=== PATIENT | female | born 1985 ===

== ENCOUNTER 2019-11-08 17:17 | Inpatient (IN) | payer OTHER ==
[2019-11-08] MEDS ORDERED: LIDOCAINE (2%) 20 MG/1 ML VIAL 20 ML MDV INFILTRATI ONE (19:54)
[2019-11-08] MEDS ORDERED: BUTORPHANOL 2 MG/1 ML INJ IV PRN ×2 (19:54)
[2019-11-08] MEDS ORDERED: TERBUTALINE 1 MG/1 ML INJ IVP PRN (19:54)
[2019-11-08] MEDS ORDERED: TERBUTALINE 1 MG/1 ML INJ SUB-Q PRN (19:54)
[2019-11-08] MEDS ORDERED: ePHEDrine SULFATE 50 MG/1 ML INJ IV PRN ×2 (19:54→21:10)
[2019-11-08] MEDS ORDERED: MINERAL OIL 30 ML ORAL LIQD PO PRN (19:54)
[2019-11-08] MEDS ORDERED: fentaNYL 100 MCG/2 ML INJ IV PRN (19:54)
[2019-11-08] MEDS ORDERED: OXYTOCIN DRIP 30 UNITS/500 ML BAG IV SCH ×2 (20:00)
--- NOTE | 2019-11-08 20:14 | History and Physical Report ---
History of Present Illness Date of examination: 11/08/19 Date of admission: 11/08/19 19:40 Chief complaint: Pt presented to ob triage with c/o back pain with bloody show. She denies rupture of BOW. History of present illness: 34 y/o female presented to OB triage with c/o low back pain and bloody show. Pt denied rupture of BOW. Pt initiated her pnc at [facility] at 11 6/7 wks. Pt had an uneventful preg. She has a hx of anemia, vit D def, GDM 11 yrs ago but normal testing this preg. Hx of macrosomic babies with delivery of a 10 lb 3oz in 2017. Quad screen revealed an increased risk for DSR; Panorama 05/01: low risk male. Neg med/surg/social hx. Family hx of HTN. Pt was admitted and taken to the labor unit. Past History Past Surgical History: no surgical history Family/Genetic History: hypertension Social history: no significant social history - Obstetrical History Expected Date of Delivery: 11/10/19 Actual Gestation: 39 Week(s) 5 Day(s) : 7 Para: 6 Hx # Term Pregnancies: 6 Number of Pregnancies: 0 Spontaneous Abortions: 0 Induced : 0 Number of Living Children: 6 Medications and Allergies Allergies Allergy/AdvReac Type Severity Reaction Status Date / Time No Known Allergies Allergy Verified 06/01/15 13:55 Home Medications Medication Instructions Recorded Confirmed Last Taken Type HYDROcodone/APAP 5-325 [[place] 2 each PO Q4HR PRN #20 tablet 06/03/15 Unknown Rx 5/325] Promethazine [Phenergan TAB] 25 mg PO Q6HR PRN #20 tab 06/03/15 Unknown Rx Review of Systems All systems: negative Eyes: deferred Ears, nose, mouth and throat: deferred Breasts: normal Genitourinary: normal appearance Rectal Exam: deferred - Vital Signs Vital signs: Vital Signs Pulse Pulse Ox 76 97 11/08/19 19:48 11/08/19 19:48 Temp Pulse Resp BP Pulse Ox 90 120/67 98 11/08/19 19:58 11/08/19 19:49 11/08/19 19:58 - Physical Exam Breasts: Positive: normal Abdomen: Positive: normal appearance, soft, normal bowel sounds, other (gravid) Genitourinary (Female): Positive: normal external genitalia, normal perenium Vulva: both: normal Vagina: Positive: normal moisture Uterus: Positive: enlarged, other (gravid) Adnexa: both: normal Anus/Rectum: Positive: normal perianal skin Extremities: Positive: normal - Obstetrical FHR: category 1 Uterine Contraction Monitor Mode: External Cervical Dilatation: 4 (per nurse) Cervical Effacement Percentage: 50 (per nurse) station: -2 Uterine Contraction Pattern: Irregular Uterine Tone Measurement Phase: Resting Uterine Contraction Intensity: Mild Results All other labs normal. Assessment and Plan A: IUP @ 39.6 wks GBS neg Anemia CAT I FHT P: Admit to L&D Monitor Pain med prn Start Pitocin per hosp protocal Anticipate
[2019-11-08] MEDS: LACTATED RINGERS 1,000 ML IV SCH ×2 (20:25→21:45)
[2019-11-08 20:48] LABS: Hematocrit 36.8 % (30.3-42.9); Hemoglobin 12.8 gm/dl (10.1-14.3); Mean Corpuscular HGB Conc 35 % (30-34); Mean Corpuscular Volume 95 fl (79-97); Platelet Count 261 K/mm3 (140-440); Red Blood Count 3.89 M/mm3 (3.65-5.03); Red Cell Distribution Width 14.7 % (13.2-15.2)
[2019-11-08] MEDS ORDERED: NALOXONE 2 MG/2 ML INJ IV PRN (21:10)
--- NOTE | 2019-11-08 21:14 | Anesthesia Consultation ---
Anesthesia Consult and Med Hx Date of service: 11/08/19 - Airway Anesthetic Teeth Evaluation: Chipped, Caps ROM Head & Neck: Adequate Mental/Hyoid Distance: Adequate Mallampati Class: Class III Intubation Access Assessment: Probably Good - Pulmonary Exam CTA: Yes - Cardiac Exam Cardiac Exam: RRR - Pre-Operative Health Status ASA Pre-Surgery Classification: ASA2 Proposed Anesthetic Plan: Epidural - Pulmonary Hx Smoking: No Hx Asthma: No Hx Respiratory Symptoms: No SOB: No COPD: No Home Oxygen Therapy: No Hx Pneumonia: No Hx Sleep Apnea: No - Cardiovascular System Hx Hypertension: No Hx Coronary Artery Disease: No Hx Heart Attack/AMI: No Hx Angina: No Hx Percutaneous Transluminal Coronary Angioplasty (PTCA): No Hx Cardia Arrhythmia: No Hx Pacemaker: No Hx Internal Defibrillator: No Hx Valvular Heart Disease: No Hx Heart Murmur: No Hx Peripheral Vascular Disease: No - Central Nervous System Hx Neuromuscular Disorder: No Hx Seizures: No CVA: No Hx Back Pain: No Hx Psychiatric Problems: No - Gastrointestinal Hx Ulcer: No Hx Gastroesophageal Reflux Disease: No - Endocrine Hx Renal Disease: No Hx End Stage Renal Disease: No Hx Cirrhosis: No Hx Liver Disease: No Hx Insulin Dependent Diabetes: No Hx Non-Insulin Dependent Diabetes: No Hx Thyroid Disease: No Hx Hypothyroidism: No Hx Hyperthyroidism: No - Hematic Hx Anemia: No Hx Sickle Cell Disease: No - Other Systems Hx Alcohol Use: No Hx Substance Use: No Hx Cancer: No Hx Obesity: Yes
[2019-11-08] MEDS ORDERED: DEXMEDETOMIDINE 200 MCG/2 ML VIAL IV ONE (21:24)
--- NOTE | 2019-11-08 22:39 | Progress Note ---
Labor Epidural - Labor Epidural Start Time: 22:14 Stop Time: 22:25 Performed by:: RODRIGUEZ ALAS Procedure: Patient is requesting combined spinal epidural for labor and pain. H&P, labs were reviewed. All questions and concerns were answered. Informed consent was obtained. Timeout performed. Patient in sitting position on side of bed. Sterile prep and drape was performed. [4] mL 1% lidocaine skin wheal at L [3]-L [4]. 18-gauge Touhy epidural needle advanced to [id number] using air technique, [5cm] negative CSF/Heme. 27-gauge spinal needle advanced [clear positive free-flowing] CSF, no paraesthesia. spinal dose of [Precedex 10 mcg]. Epidural catheter advanced to [10] cm. [Negative] Aspiration, [negative] test dose. Sterile dressing applied. Patient tolerated procedure well
[2019-11-08] MEDS: fentaNYL-BUPIV 2 MCG/ML-0.125% 200 MCG/100 ML BAG EPIDURAL SCH (22:46)
--- NOTE | 2019-11-09 03:00 | Progress Note ---
Assessment and Plan A: CAT I FHT p: Continue monitoring AROM cl fluid anticipate Subjective - Subjective Date of service: 11/09/19 Interval history: 34 y/o female presented to OB triage with c/o low back pain and bloody show. Pt denied rupture of BOW. Pt initiated her pnc at [facility] at 11 6/7 wks. Pt had an uneventful preg. She has a hx of anemia, vit D def, GDM 11 yrs ago but normal testing this preg. Hx of macrosomic babies with delivery of a 10 lb 3oz in 2017. Quad screen revealed an increased risk for DSR; Panorama 05/01: low risk male. Neg med/surg/social hx. Family hx of HTN. Pt was admitted and taken to the labor unit. Patient reports: movement normal Objective - Vital Signs Vital Signs: Vital Signs - 12hr 11/08/19 11/08/19 11/08/19 19:48 19:49 19:53 Temperature Pulse Rate 76 69 79 Respiratory Rate Blood Pressure 120/67 Blood Pressure [Right] O2 Sat by Pulse 97 99 Oximetry 11/08/19 11/08/19 11/08/19 19:58 20:03 20:06 Temperature 98.6 F Pulse Rate 90 90 80 Respiratory 18 Rate Blood Pressure Blood Pressure 120/67 [Right] O2 Sat by Pulse 98 98 98 Oximetry 11/08/19 11/08/19 11/08/19 20:08 20:13 20:18 Temperature Pulse Rate 86 74 75 Respiratory Rate Blood Pressure Blood Pressure [Right] O2 Sat by Pulse 98 98 98 Oximetry 11/08/19 11/08/19 11/08/19 20:24 20:29 20:34 Temperature Pulse Rate 78 77 76 Respiratory Rate Blood Pressure 119/75 Blood Pressure [Right] O2 Sat by Pulse 89 96 97 Oximetry 11/08/19 11/08/19 11/08/19 20:39 20:44 20:49 Temperature Pulse Rate 75 84 81 Respiratory Rate Blood Pressure Blood Pressure [Right] O2 Sat by Pulse 97 98 97 Oximetry 11/08/19 11/08/19 11/08/19 20:54 20:59 21:04 Temperature Pulse Rate 73 71 75 Respiratory Rate Blood Pressure Blood Pressure [Right] O2 Sat by Pulse 98 97 97 Oximetry 11/08/19 11/08/19 11/08/19 21:09 21:14 21:19 Temperature Pulse Rate 73 71 75 Respiratory Rate Blood Pressure Blood Pressure [Right] O2 Sat by Pulse 98 98 99 Oximetry 11/08/19 11/08/19 11/08/19 21:24 21:29 21:34 Temperature Pulse Rate 74 75 72 Respiratory Rate Blood Pressure Blood Pressure [Right] O2 Sat by Pulse 97 96 99 Oximetry 11/08/19 11/08/19 11/08/19 21:39 21:40 21:44 Temperature Pulse Rate 89 75 69 Respiratory Rate Blood Pressure Blood Pressure [Right] O2 Sat by Pulse 98 74 L 97 Oximetry 11/08/19 11/08/19 11/08/19 22:10 22:13 22:15 Temperature Pulse Rate 66 75 68 Respiratory Rate Blood Pressure 127/82 Blood Pressure [Right] O2 Sat by Pulse 100 99 Oximetry 11/08/19 11/08/19 11/08/19 22:16 22:20 22:21 Temperature Pulse Rate 69 71 69 Respiratory Rate Blood Pressure 125/85 124/88 Blood Pressure [Right] O2 Sat by Pulse 99 Oximetry 11/08/19 11/08/19 11/08/19 22:25 22:26 22:30 Temperature Pulse Rate 67 71 78 Respiratory Rate Blood Pressure 120/82 Blood Pressure [Right] O2 Sat by Pulse 99 97 Oximetry 11/08/19 11/08/19 11/08/19 22:31 22:35 22:36 Temperature Pulse Rate 68 81 91 H Respiratory Rate Blood Pressure 120/74 119/71 Blood Pressure [Right] O2 Sat by Pulse 99 Oximetry 11/08/19 11/08/19 11/08/19 22:40 22:45 22:50 Temperature Pulse Rate 72 73 77 Respiratory Rate Blood Pressure Blood Pressure [Right] O2 Sat by Pulse 98 98 98 Oximetry 11/08/19 11/08/19 11/08/19 22:55 23:00 23:05 Temperature Pulse Rate 71 68 86 Respiratory Rate Blood Pressure Blood Pressure [Right] O2 Sat by Pulse 98 98 97 Oximetry 11/08/19 11/08/19 11/08/19 23:06 23:10 23:13 Temperature Pulse Rate 76 74 64 Respiratory Rate Blood Pressure 93/55 96/54 Blood Pressure [Right] O2 Sat by Pulse 98 Oximetry 11/08/19 11/08/19 11/08/19 23:15 23:20 23:25 Temperature Pulse Rate 68 77 64 Respiratory Rate Blood Pressure 104/63 110/65 Blood Pressure [Right] O2 Sat by Pulse 98 97 100 Oximetry 11/08/19 11/08/19 11/08/19 23:30 23:35 23:40 Temperature Pulse Rate 66 71 67 Respiratory Rate Blood Pressure 108/63 Blood Pressure [Right] O2 Sat by Pulse 100 100 100 Oximetry 11/08/19 11/08/19 11/08/19 23:45 23:50 23:55 Temperature Pulse Rate 66 67 74 Respiratory Rate Blood Pressure 104/57 Blood Pressure [Right] O2 Sat by Pulse 100 100 100 Oximetry 11/09/19 11/09/19 11/09/19 00:00 00:05 00:10 Temperature 97.9 F Pulse Rate 75 72 65 Respiratory Rate Blood Pressure Blood Pressure [Right] O2 Sat by Pulse 100 100 100 Oximetry 11/09/19 11/09/19 11/09/19 00:15 00:16 00:20 Temperature Pulse Rate 68 68 66 Respiratory Rate Blood Pressure 110/58 Blood Pressure [Right] O2 Sat by Pulse 100 98 Oximetry 11/09/19 11/09/19 11/09/19 00:25 00:30 00:35 Temperature Pulse Rate 68 68 74 Respiratory Rate Blood Pressure Blood Pressure [Right] O2 Sat by Pulse 98 98 98 Oximetry 11/09/19 11/09/19 11/09/19 00:40 00:45 00:50 Temperature Pulse Rate 74 94 H 73 Respiratory Rate Blood Pressure Blood Pressure [Right] O2 Sat by Pulse 97 98 98 Oximetry 11/09/19 11/09/19 11/09/19 00:55 01:00 01:05 Temperature Pulse Rate 72 75 75 Respiratory Rate Blood Pressure 102/56 Blood Pressure [Right] O2 Sat by Pulse 98 97 98 Oximetry 11/09/19 11/09/19 11/09/19 01:10 01:15 01:20 Temperature Pulse Rate 67 66 67 Respiratory Rate Blood Pressure Blood Pressure [Right] O2 Sat by Pulse 98 97 97 Oximetry 11/09/19 11/09/19 11/09/19 01:25 01:30 01:35 Temperature Pulse Rate 67 69 66 Respiratory Rate Blood Pressure Blood Pressure [Right] O2 Sat by Pulse 97 98 96 Oximetry 11/09/19 11/09/19 11/09/19 01:40 01:45 01:50 Temperature Pulse Rate 75 71 66 Respiratory Rate Blood Pressure Blood Pressure [Right] O2 Sat by Pulse 97 97 98 Oximetry 11/09/19 11/09/19 11/09/19 01:55 02:00 02:05 Temperature Pulse Rate 65 66 65 Respiratory Rate Blood Pressure 100/60 Blood Pressure [Right] O2 Sat by Pulse 97 98 Oximetry 11/09/19 11/09/19 11/09/19 02:06 02:11 02:16 Temperature Pulse Rate 68 65 63 Respiratory Rate Blood Pressure Blood Pressure [Right] O2 Sat by Pulse 97 97 97 Oximetry 11/09/19 11/09/19 11/09/19 02:21 02:26 02:31 Temperature Pulse Rate 64 66 80 Respiratory Rate Blood Pressure Blood Pressure [Right] O2 Sat by Pulse 98 98 99 Oximetry 11/09/19 11/09/19 11/09/19 02:34 02:36 02:41 Temperature Pulse Rate 73 79 71 Respiratory Rate Blood Pressure 88/55 98/75 Blood Pressure [Right] O2 Sat by Pulse 97 98 Oximetry 11/09/19 11/09/19 11/09/19 02:46 02:49 02:51 Temperature Pulse Rate 78 87 71 Respiratory Rate Blood Pressure Blood Pressure [Right] O2 Sat by Pulse 97 68 L 99 Oximetry - Exam Breasts: normal Abdomen: Present: normal appearance, soft Vulva: both: normal Uterus: Present: normal FHR: category 1 Uterine Contraction Monitor Mode: External Cervical Dilatation: 5 Cervical Effacement Percentage: 70 station: -2 Uterine Contraction Frequency (min): Q2 Uterine Contraction Pattern: Regular Uterine Tone Measurement Phase: Resting Uterine Contraction Intensity: Moderate Extremities: normal - Labs Labs: Abnormal Labs 11/08/19 18:45 MCH 33 H MCHC 35 H Laboratory Results - last 24 hr 11/08/19 11/08/19 18:45 18:45 WBC 7.4 RBC 3.89 Hgb 12.8 Hct 36.8 MCV 95 MCH 33 H MCHC 35 H RDW 14.7 Plt Count 261 Blood Type O POSITIVE Antibody Screen Negative
[2019-11-09] MEDS ORDERED: ONDANSETRON 4 MG/2 ML INJ IV ONE (05:57)
[2019-11-09] MEDS: fentaNYL-BUPIV 2 MCG/ML-0.125% 200 MCG/100 ML BAG EPIDURAL SCH (06:33)
[2019-11-09] MEDS: LACTATED RINGERS 1,000 ML IV SCH (06:35)
[2019-11-09] MEDS ORDERED: DEXMEDETOMIDINE 200 MCG/2 ML VIAL IV ONE (07:41)
[2019-11-09] MEDS: OXYTOCIN 20 UNIT/1000ML DRIP 20 UNITS/1,000 ML BAG IV SCH ×2 (08:38→09:28)
[2019-11-09] MEDS ORDERED: METHYLERGONOVINE MALEATE 0.2 MG/ML VIAL IM ONE ×2 (08:43→08:56)
[2019-11-09] MEDS ORDERED: WITCH HAZEL/ GLYCERIN PAD TP PRN (09:00)
[2019-11-09] MEDS ORDERED: PROMETHAZINE 25 MG RECT SUPP PR PRN (09:00)
[2019-11-09] MEDS ORDERED: LANOLIN/ZINC/DIMETHICONE (LANSINOH) 7 GM TP PRN (09:00)
[2019-11-09] MEDS ORDERED: diphenhydrAMINE 25 MG CAP PO PRN (09:00)
[2019-11-09] MEDS ORDERED: PROMETHAZINE 25 MG TAB PO PRN (09:00)
[2019-11-09] MEDS ORDERED: ONDANSETRON 4 MG/2 ML INJ IV PRN (09:00)
--- NOTE | 2019-11-09 09:09 | Procedure Note ---
OB Delivery Note - Delivery Date of Delivery: 11/09/19 (7930) Surgeon: NAJMA GILL (CNM) Estimated blood loss: 300cc - Vaginal Delivery presentation: vertex Delivery position: OP (direct) Intrapartum events: meconium (term) Delivery induction: none Delivery augmentation: rupture of membranes (1000 on 11/08/2019), pitocin Delivery monitor: external FHT, external uterine Route of delivery: Delivery placenta: spontaneous (0838) Delivery cord: 3 umbilical vessels Episiotomy: none Delivery laceration: 1st degree (no repair required) Anesthesia: epidural Delivery comments: of viable male infant, placed directly to maternal abdomen. Immediate cry, term meconium. Cord double clamped and cut by FOB. Cord blood collected and sent to lab. Placenta spontaneously delivered, bonnie, disposed per hospital policy. Uterus firm @ U-3. Perineum with 1st degree laceration, no repair required. Mother and baby safe, stable and left in care of RN. - A at 1 minute: 8 at 5 minutes: 9 Gender: Male (Weight: 3786 gms (8lbs 6 ozs) 21.5 inches)
--- NOTE | 2019-11-09 09:12 | Progress Note ---
Assessment and Plan A: IUP at 39.7 wks\ VE: 7/100%/+1 CAT 1 FHT p: Dr Mujica and Shweta notified of pt's hx of macrosomic babies Continue monitoring Anticipate Subjective - Subjective Interval history: 34 y/o female presented to OB triage with c/o low back pain and bloody show. Pt denied rupture of BOW. Pt initiated her pnc at [facility] at 11 6/7 wks. Pt had an uneventful preg. She has a hx of anemia, vit D def, GDM 11 yrs ago but normal testing this preg. Hx of macrosomic babies with delivery of a 10 lb 3oz in 2017. Quad screen revealed an increased risk for DSR; Panorama 05/01: low risk male. Neg med/surg/social hx. Family hx of HTN. Pt was admitted and taken to the labor unit. Patient reports: movement normal Objective - Vital Signs Vital Signs: Vital Signs - 12hr 11/08/19 11/08/19 11/08/19 21:09 21:14 21:19 Temperature Pulse Rate 73 71 75 Respiratory Rate Blood Pressure O2 Sat by Pulse 98 98 99 Oximetry 11/08/19 11/08/19 11/08/19 21:24 21:29 21:34 Temperature Pulse Rate 74 75 72 Respiratory Rate Blood Pressure O2 Sat by Pulse 97 96 99 Oximetry 11/08/19 11/08/19 11/08/19 21:39 21:40 21:44 Temperature Pulse Rate 89 75 69 Respiratory Rate Blood Pressure O2 Sat by Pulse 98 74 L 97 Oximetry 11/08/19 11/08/19 11/08/19 22:10 22:13 22:15 Temperature Pulse Rate 66 75 68 Respiratory Rate Blood Pressure 127/82 O2 Sat by Pulse 100 99 Oximetry 11/08/19 11/08/19 11/08/19 22:16 22:20 22:21 Temperature Pulse Rate 69 71 69 Respiratory Rate Blood Pressure 125/85 124/88 O2 Sat by Pulse 99 Oximetry 11/08/19 11/08/19 11/08/19 22:25 22:26 22:30 Temperature Pulse Rate 67 71 78 Respiratory Rate Blood Pressure 120/82 O2 Sat by Pulse 99 97 Oximetry 11/08/19 11/08/19 11/08/19 22:31 22:35 22:36 Temperature Pulse Rate 68 81 91 H Respiratory Rate Blood Pressure 120/74 119/71 O2 Sat by Pulse 99 Oximetry 11/08/19 11/08/19 11/08/19 22:40 22:45 22:50 Temperature Pulse Rate 72 73 77 Respiratory Rate Blood Pressure O2 Sat by Pulse 98 98 98 Oximetry 11/08/19 11/08/19 11/08/19 22:55 23:00 23:05 Temperature Pulse Rate 71 68 86 Respiratory Rate Blood Pressure O2 Sat by Pulse 98 98 97 Oximetry 11/08/19 11/08/19 11/08/19 23:06 23:10 23:13 Temperature Pulse Rate 76 74 64 Respiratory Rate Blood Pressure 93/55 96/54 O2 Sat by Pulse 98 Oximetry 11/08/19 11/08/19 11/08/19 23:15 23:20 23:25 Temperature Pulse Rate 68 77 64 Respiratory Rate Blood Pressure 104/63 110/65 O2 Sat by Pulse 98 97 100 Oximetry 11/08/19 11/08/19 11/08/19 23:30 23:35 23:40 Temperature Pulse Rate 66 71 67 Respiratory Rate Blood Pressure 108/63 O2 Sat by Pulse 100 100 100 Oximetry 11/08/19 11/08/19 11/08/19 23:45 23:50 23:55 Temperature Pulse Rate 66 67 74 Respiratory Rate Blood Pressure 104/57 O2 Sat by Pulse 100 100 100 Oximetry 11/09/19 11/09/19 11/09/19 00:00 00:05 00:10 Temperature 97.9 F Pulse Rate 75 72 65 Respiratory Rate Blood Pressure O2 Sat by Pulse 100 100 100 Oximetry 11/09/19 11/09/19 11/09/19 00:15 00:16 00:20 Temperature Pulse Rate 68 68 66 Respiratory Rate Blood Pressure 110/58 O2 Sat by Pulse 100 98 Oximetry 11/09/19 11/09/19 11/09/19 00:25 00:30 00:35 Temperature Pulse Rate 68 68 74 Respiratory Rate Blood Pressure O2 Sat by Pulse 98 98 98 Oximetry 11/09/19 11/09/19 11/09/19 00:40 00:45 00:50 Temperature Pulse Rate 74 94 H 73 Respiratory Rate Blood Pressure O2 Sat by Pulse 97 98 98 Oximetry 11/09/19 11/09/19 11/09/19 00:55 01:00 01:05 Temperature Pulse Rate 72 75 75 Respiratory Rate Blood Pressure 102/56 O2 Sat by Pulse 98 97 98 Oximetry 11/09/19 11/09/19 11/09/19 01:10 01:15 01:20 Temperature Pulse Rate 67 66 67 Respiratory Rate Blood Pressure O2 Sat by Pulse 98 97 97 Oximetry 11/09/19 11/09/19 11/09/19 01:25 01:30 01:35 Temperature Pulse Rate 67 69 66 Respiratory Rate Blood Pressure O2 Sat by Pulse 97 98 96 Oximetry 11/09/19 11/09/19 11/09/19 01:40 01:45 01:50 Temperature Pulse Rate 75 71 66 Respiratory Rate Blood Pressure O2 Sat by Pulse 97 97 98 Oximetry 11/09/19 11/09/19 11/09/19 01:55 02:00 02:05 Temperature Pulse Rate 65 66 65 Respiratory Rate Blood Pressure 100/60 O2 Sat by Pulse 97 98 Oximetry 11/09/19 11/09/19 11/09/19 02:06 02:11 02:16 Temperature Pulse Rate 68 65 63 Respiratory Rate Blood Pressure O2 Sat by Pulse 97 97 97 Oximetry 11/09/19 11/09/19 11/09/19 02:21 02:26 02:31 Temperature Pulse Rate 64 66 80 Respiratory Rate Blood Pressure O2 Sat by Pulse 98 98 99 Oximetry 11/09/19 11/09/19 11/09/19 02:34 02:36 02:41 Temperature Pulse Rate 73 79 71 Respiratory Rate Blood Pressure 88/55 98/75 O2 Sat by Pulse 97 98 Oximetry 11/09/19 11/09/19 11/09/19 02:46 02:49 02:51 Temperature Pulse Rate 78 87 71 Respiratory Rate Blood Pressure O2 Sat by Pulse 97 68 L 99 Oximetry 11/09/19 11/09/19 11/09/19 02:55 02:56 03:05 Temperature Pulse Rate 82 84 77 Respiratory Rate Blood Pressure 116/56 O2 Sat by Pulse 91 82 L Oximetry 11/09/19 11/09/19 11/09/19 03:35 03:53 04:05 Temperature 98.1 F Pulse Rate 77 74 Respiratory Rate Blood Pressure 107/64 108/63 O2 Sat by Pulse Oximetry 11/09/19 11/09/19 11/09/19 04:35 05:04 05:34 Temperature Pulse Rate 69 75 80 Respiratory Rate Blood Pressure 102/60 115/69 110/69 O2 Sat by Pulse Oximetry 11/09/19 11/09/19 11/09/19 06:00 06:05 06:35 Temperature 98.1 F Pulse Rate 72 73 Respiratory Rate Blood Pressure 125/72 97/53 O2 Sat by Pulse Oximetry 11/09/19 11/09/19 11/09/19 07:05 07:17 07:34 Temperature 98.9 F Pulse Rate 76 77 Respiratory 20 Rate Blood Pressure 100/58 99/56 O2 Sat by Pulse Oximetry 11/09/19 11/09/19 11/09/19 08:04 08:05 08:09 Temperature Pulse Rate 84 112 H 75 Respiratory Rate Blood Pressure 137/112 O2 Sat by Pulse 99 61 L 98 Oximetry 11/09/19 11/09/19 11/09/19 08:14 08:19 08:24 Temperature Pulse Rate 86 107 H 92 H Respiratory Rate Blood Pressure O2 Sat by Pulse 100 99 100 Oximetry 11/09/19 11/09/19 11/09/19 08:29 08:34 08:42 Temperature Pulse Rate 94 H 79 81 Respiratory Rate Blood Pressure 137/68 108/60 O2 Sat by Pulse 100 Oximetry 11/09/19 09:04 Temperature Pulse Rate 75 Respiratory Rate Blood Pressure 108/58 O2 Sat by Pulse Oximetry - Exam Breasts: deferred Abdomen: Present: normal appearance, soft Vulva: both: normal Uterus: Present: normal FHR: category 1 Uterine Contraction Monitor Mode: External Cervical Dilatation: 7 Cervical Effacement Percentage: 100 station: +1 Uterine Contraction Frequency (min): q2-3 Uterine Contraction Pattern: Regular Uterine Tone Measurement Phase: Resting Uterine Contraction Intensity: Strong/Firm Extremities: normal - Labs Labs: Abnormal Labs 11/08/19 18:45 MCH 33 H MCHC 35 H Laboratory Results - last 24 hr 11/08/19 11/08/19 18:45 18:45 WBC 7.4 RBC 3.89 Hgb 12.8 Hct 36.8 MCV 95 MCH 33 H MCHC 35 H RDW 14.7 Plt Count 261 Blood Type O POSITIVE Antibody Screen Negative
[2019-11-09] MEDS: IBUPROFEN 600 MG TAB PO SCH ×3 (09:28→20:22)
[2019-11-09] MEDS: PRENATAL VIT27-FE FUMARATE-FOLIC ACID VIT TAB PO SCH (09:28)
[2019-11-09] MEDS: FERROUS SULFATE 325 MG TAB PO SCH ×2 (09:28→22:13)
--- NOTE | 2019-11-09 16:40 | Post Anesthesia Evaluation ---
- Post Anesthesia Evaluation Patient Participated: Yes Airway Patent: Yes Stable Respiratory Function: Yes Nausea/Vomiting: No Temp > 96.8F: Yes Pain Manageable: Yes Adequeate Hydration: Yes Anesthesia Complications: No Block Receding Appropriately: Yes Patient on Ventilator: No
[2019-11-09] MEDS: oxyCODONE /ACETAMINOPHEN 5-325MG TAB PO PRN ×2 (17:54→23:25)
[2019-11-09 19:53] LABS: Hematocrit 33.9 % (30.3-42.9); Hemoglobin 11.8 gm/dl (10.1-14.3)
[2019-11-09] MEDS: MAGNESIUM HYDROXIDE (MOM) ORAL LIQD UDC PO PRN (20:22)
[2019-11-10] MEDS: IBUPROFEN 600 MG TAB PO SCH ×4 (02:07→21:28)
[2019-11-10] MEDS: oxyCODONE /ACETAMINOPHEN 5-325MG TAB PO PRN ×4 (05:01→23:40)
[2019-11-10] MEDS ORDERED: DIPHtheria,PERTUSSIS(ACELL),TETANUS VACCINE/PF 0.5 ML VIAL IM ONE (06:00)
[2019-11-10] MEDS: FERROUS SULFATE 325 MG TAB PO SCH ×2 (08:59→21:27)
[2019-11-10] MEDS: PRENATAL VIT27-FE FUMARATE-FOLIC ACID VIT TAB PO SCH (08:59)
--- NOTE | 2019-11-10 12:38 | Progress Note ---
Assessment and Plan A: day 1 S/P . P: Anticipate discharge home tomorrow. Subjective - Subjective Date of service: 11/17/19 Principal diagnosis: day 1 S/P Interval history: day 1 S/P . Patient reports: appetite normal, voiding normally, pain well controlled, flatus, ambulating normally, no dizzy ambulation, no nauseated [place]: doing well Objective - Vital Signs Latest vital signs: Vital Signs Temp Pulse Resp BP Pulse Ox 11/10/19 08:03 98.0 F 78 16 116/84 98 11/10/19 06:01 18 11/10/19 05:01 18 11/10/19 03:07 18 11/10/19 02:07 18 11/10/19 00:25 18 11/10/19 00:22 97.9 F 67 20 91/53 97 11/09/19 23:25 18 11/09/19 21:22 18 11/09/19 20:22 18 Intake and Output 11/09/19 11/10/19 11/10/19 23:59 07:59 15:59 Intake Total 120 360 240 Balance 120 360 240 Intake: Oral 240 240 Intake, Free Water 120 120 Other: Total, Intake Amount 240 240 # Voids Void 1 1 - Exam Abdomen: Present: normal appearance, soft. Absent: distention, tenderness, guarding, rigidity Uterus: Present: normal, firm, fundal height below umbilicus. Absent: bogginess, tenderness Extremities: Present: normal. Absent: tenderness, edema
[2019-11-10] MEDS: MAGNESIUM HYDROXIDE (MOM) ORAL LIQD UDC PO PRN (23:48)
[2019-11-11] MEDS: IBUPROFEN 600 MG TAB PO SCH ×2 (02:51→09:01)
[2019-11-11] MEDS: PRENATAL VIT27-FE FUMARATE-FOLIC ACID VIT TAB PO SCH (09:01)
[2019-11-11] MEDS: FERROUS SULFATE 325 MG TAB PO SCH (09:01)
--- NOTE | 2019-11-11 09:58 | Progress Note ---
Assessment and Plan A: day 2 S/P . P: Discharge patient home today. Discussed with patient discharge instructions and warning signs. Advised patient to continue taking her vitamins and iron supplements at home. Advised patient to avoid intercourse, lifting, and housework. Advised patient to follow up at [facility] in 6 weeks for exam. Depo Provera 150 mg IM prior to discharge today per patient request. Possible side effects of DMPA discussed. Patient voiced understanding of all instructions. Subjective - Subjective Date of service: 11/11/19 Principal diagnosis: day 2 S/P Interval history: day 2 S/P . Patient reports: appetite normal, voiding normally, pain well controlled, flatus, ambulating normally, no dizzy ambulation, no nauseated : doing well Objective - Vital Signs Latest vital signs: Vital Signs Temp Pulse Resp BP Pulse Ox 11/11/19 07:40 98.2 F 67 16 107/75 99 11/11/19 00:25 98.2 F 62 20 112/70 98 11/10/19 23:40 18 11/10/19 16:40 98.4 F 59 L 20 109/75 97 Intake and Output 11/10/19 11/11/19 11/11/19 23:59 07:59 15:59 Intake Total 240 240 Balance 240 240 Intake: Oral 240 240 Other: Total, Intake Amount 240 240 # Voids Void 1 1 - Exam Cardiovascular: Present: Regular rate, Normal S1, Normal S2 Lungs: Present: Clear to auscultation Abdomen: Present: normal appearance, soft, normal bowel sounds. Absent: distention, tenderness, guarding, rigidity Uterus: Present: normal, firm, fundal height below umbilicus. Absent: bogginess, tenderness Extremities: Present: normal. Absent: tenderness, edema
[2019-11-11] MEDS ORDERED: medroxyPROGESTERone ACETATE 150 MG/ML SYRINGE IM ONE (10:00)
--- NOTE | 2019-11-11 10:05 | Discharge Summary ---
Providers - Providers Date of Admission: 11/08/19 19:40 Date of discharge: 11/11/19 Attending physician: YOLANDA CARTWRIGHT MD Primary care physician: STATEMENT REQUEST CLERK Hospitalization Reason for admission: active labor Delivery: Episiotomy: none Laceration: 1st degree Other procedures: none complications: none Discharge diagnosis: IUP at term delivered [place] baby: male Pertinent studies: Labs Hospital course: Normal hospital course. Condition at discharge: Good Disposition: DC-01 TO HOME OR SELFCARE - Discharge Diagnoses (1) Term delivered Status: Acute Plan - Provider Discharge Summary Activity: routine, no sex for 6 weeks, no heavy lifting 4 weeks, no strenuous exercise Diet: routine Instructions: routine Additional instructions: Continue taking your vitamins and iron supplements at home. Call your doctor immediately for: * Fever > 100.5 * Heavy vaginal bleeding ( >1 pad per hour) * Severe persistent headache * Shortness of breath * Reddened, hot, painful area to leg or breast - Follow up plan Follow up: YOLANDA CARTWRIGHT MD [Staff Physician] - 6 Weeks Forms: [facility] Discharge Summary
[2019-11-11 11:36] VITALS: BP 102/67
== END 2019-11-11 11:20 | disposition home or self-care (01) | DRG 807 ==
LOC: TRG 17:17 → APU 17:18 → TRG 17:47 → LD 19:40 → OBSVTOIN 19:40 → OB 11-09 10:41
PROVIDERS: ADMIT Obstetrics & Gynecology; ATTEND Obstetrics & Gynecology
PROC: 10E0XZZ Delivery of Products of Conception, External Approach (ICD-10-PCS; principal; 2019-11-09)
PROC: 0HQ9XZZ Repair Perineum Skin, External Approach (ICD-10-PCS; 2019-11-09)
PROC: 3E0R3BZ Introduction of Anesthetic Agent into Spinal Canal, Percutaneous Approach (ICD-10-PCS; 2019-11-09)
PROC: 00HU33Z Insertion of Infusion Device into Spinal Canal, Percutaneous Approach (ICD-10-PCS; 2019-11-09)
PROC: 10907ZC Drainage of Amniotic Fluid, Therapeutic from Products of Conception, Via Natural or Artificial Opening (ICD-10-PCS; 2019-11-09)
PROC: 3E0234Z Introduction of Serum, Toxoid and Vaccine into Muscle, Percutaneous Approach (ICD-10-PCS; 2019-11-10)
DX: O77.0 Labor and delivery complicated by meconium in amniotic fluid (principal); Z37.0 Single live birth; O70.0 First degree perineal laceration during delivery; O99.214 Obesity complicating childbirth; O99.02 Anemia complicating childbirth; E66.9 Obesity, unspecified; Z3A.39 39 weeks gestation of pregnancy; Z82.49 Family history of ischemic heart disease and other diseases of the circulatory system; Z79.899 Other long term (current) drug therapy
CPT/HCPCS: 36415; 85014; 85018; 85027; 86850; 86900; 86901; 90471; 90715; G0378; J1050; J2210; J2405; J2590; J3490; J7120